=== PATIENT | male | born 1965 | race Hispanic/Latino ===

== ENCOUNTER 2017-11-12 01:51 | Emergency (ER) | payer MEDICAID ==
[2017-11-12] MEDS ORDERED: ACETAMINOPHEN-CODEINE 300/30MG TAB ONE (02:26)
[2017-11-12] MEDS ORDERED: DiphenhydrAMINE HCL 50 MG/ML VIAL ONE (02:55)
== END 2017-11-12 03:17 | disposition home or self-care (01) ==
LOC: EDH 01:51
DX: G47.00 Insomnia, unspecified (principal); F11.23 Opioid dependence with withdrawal; E11.9 Type 2 diabetes mellitus without complications; I10 Essential (primary) hypertension; R00.1 Bradycardia, unspecified; Z95.0 Presence of cardiac pacemaker; Z88.8 Allergy status to other drugs, medicaments and biological substances; Z98.890 Other specified postprocedural states
CPT/HCPCS: 96372; 99283; J1200

== ENCOUNTER 2019-01-17 23:44 | Emergency (ER) | payer MEDICAID ==
[2019-01-18] MEDS ORDERED: PREDNISONE 20 MG TABLET ONE (00:43)
[2019-01-18] MEDS ORDERED: LIDOCAINE 5% TOPICAL PATCH TP ONE (00:43)
[2019-01-18] MEDS ORDERED: ACYCLOVIR SODIUM 1000 MG VIAL IV ONE (00:47)
[2019-01-18] MEDS ORDERED: VALACYCLOVIR HCL 500 MG TABLET ONE (01:28)
== END 2019-01-18 01:37 | disposition home or self-care (01) ==
LOC: EDH 23:44
DX: B02.9 Zoster without complications (principal); I10 Essential (primary) hypertension; E11.9 Type 2 diabetes mellitus without complications; I25.2 Old myocardial infarction; Z95.1 Presence of aortocoronary bypass graft; Z88.5 Allergy status to narcotic agent; Z91.041 Radiographic dye allergy status
CPT/HCPCS: 93005; 99284; J0133

== ENCOUNTER 2019-04-19 00:48 | Emergency (ER) | payer MEDICAID ==
[2019-04-19 01:33] LABS: APPEARANCE,URINE Clear (CLEAR); BILIRUBIN,URINE Negative (NEGATIVE); COLOR,URINE Yellow (YELLOW); GLUCOSE, URINE (UA) TRACE mg/dL (NEGATIVE); KETONES,URINE Negative (NEGATIVE); LEUKOCYTE ESTERASE ,URINE Negative (NEGATIVE); NITRATE,URINE Negative (NEGATIVE); OCCULT BLOOD,URINE Negative (NEGATIVE); PROTEIN,URINE Trace mg/dL (NEGATIVE)
[2019-04-19 01:38] LABS: CREATININE 1.1 mg/dL (0.5-1.5); POTASSIUM 3.1 mmol/L (3.5-5.1)
[2019-04-19 01:40] LABS: AMPHET/METH SCREEN,URINE NEGATIVE (NEGATIVE); BARBITURATE SCREEN, URINE NEGATIVE (NEGATIVE); BENZODIAZEPINES SCREEN,URINE NEGATIVE (NEGATIVE); CANNABINOID SCREEN,URINE NEGATIVE (NEGATIVE); COCAINE SCREEN,URINE NEGATIVE (NEGATIVE); OPIATE SCREEN,URINE POSITIVE (NEGATIVE); PHENCYCLIDINE SCREEN,URINE NEGATIVE (NEGATIVE)
[2019-04-19 01:44] LABS: BILIRUBIN,TOTAL 0.4 mg/dL (0.2-1.0); TOTAL PROTEIN, SERUM 7.7 g/dL (6.0-8.3)
[2019-04-19 01:46] LABS: INR 1.02 (0.85-1.15); PARTIAL THROMBOPLASTIN TIME 25.8 SEC (26.3-35.5); PROTHROMBIN TIME 10.7 SEC (9.6-11.6)
[2019-04-19 01:52] LABS: BACTERIA,URINE None Seen /HPF (None Seen); MUCUS,URINE Rare LPF (None Seen); RBC,URINE None Seen /HPF (0-1); SQUAMOUS EPITHELIAL CELL,UR Rare /HPF (0-2); WBC,URINE None Seen /HPF (0-1)
[2019-04-19 01:57] LABS: BASOPHILS % (AUTO) 0.4 % (0.0-5.0); EOSINOPHILS % (AUTO) 1.3 % (0.0-8.0); HEMATOCRIT 37.4 % (42-54); LYMPHOCYTES % (AUTO) 51.5 % (21.0-51.0); MEAN CORPUSCULAR HEMOGLOBIN 33.8 pg (27.0-33.0); MEAN CORPUSCULAR HGB CONC 34.6 g/dL (32.0-36.0); MEAN CORPUSCULAR VOLUME 97.7 fL (79-99); MONOCYTES % (AUTO) 9.9 % (3.0-13.0); NEUTROPHILS % (AUTO) 36.9 % (40.0-77.0); NUCLEATED RED BLOOD CELLS 0.1 % (0.0-0.19); PLATELET COUNT (AUTO) 172 K/uL (130-400); RED BLOOD CELL COUNT(AUTO) 3.83 MIL/uL (4.50-6.20); RED CELL DISTRIBUTION WIDTH 13.5 % (11.0-15.5); WHITE BLOOD COUNT (AUTO) 5.8 K/uL (4.8-10.8)
== END 2019-04-19 03:13 | disposition home or self-care (01) ==
LOC: EDH 00:48
DX: R53.1 Weakness (principal); R51 Headache; R20.0 Anesthesia of skin; M79.602 Pain in left arm; I10 Essential (primary) hypertension; E11.9 Type 2 diabetes mellitus without complications; I25.2 Old myocardial infarction; Z95.0 Presence of cardiac pacemaker; Z90.49 Acquired absence of other specified parts of digestive tract; Z91.041 Radiographic dye allergy status; Z88.8 Allergy status to other drugs, medicaments and biological substances
CPT/HCPCS: 36415; 70450; 80053; 80305; 81001; 82550; 84484; 85025; 85610; 85730; 93005

== ENCOUNTER 2020-02-13 04:32 | Emergency (ER) | payer MEDICAID ==
[2020-02-13] MEDS ORDERED: SODIUM CHLORIDE 0.9% 1000ML 1,000 ML IV ONE (04:55)
[2020-02-13] MEDS ORDERED: MORPHINE SULFATE 4 MG/1ML SYG ONE (05:27)
[2020-02-13] MEDS ORDERED: ONDANSETRON HCL 4 MG/2 ML VIAL ONE (05:27)
[2020-02-13 05:29] LABS: BASOPHILS % (AUTO) 0.1 % (0.0-5.0); EOSINOPHILS % (AUTO) 0.1 % (0.0-8.0); HEMATOCRIT 41.1 % (42-54); LYMPHOCYTES % (AUTO) 36.1 % (21.0-51.0); MEAN CORPUSCULAR HEMOGLOBIN 31.3 pg (27.0-33.0); MEAN CORPUSCULAR HGB CONC 35.5 g/dL (32.0-36.0); MEAN CORPUSCULAR VOLUME 88.2 fL (79-99); MONOCYTES % (AUTO) 5.4 % (3.0-13.0); NEUTROPHILS % (AUTO) 57.9 % (40.0-77.0); PLATELET COUNT (AUTO) 209 K/uL (130-400); RED BLOOD CELL COUNT(AUTO) 4.66 MIL/uL (4.50-6.20); RED CELL DISTRIBUTION WIDTH 12.5 % (11.0-15.5); WHITE BLOOD COUNT (AUTO) 6.9 K/uL (4.8-10.8)
[2020-02-13 05:49] LABS: PARTIAL THROMBOPLASTIN TIME 24.8 SEC (26.3-35.5); PROTHROMBIN TIME 10.8 SEC (9.6-11.6)
[2020-02-13 05:50] LABS: CARBON DIOXIDE 26 mmol/L (21-32); CHLORIDE 104 mmol/L (101-111); GLOMERULAR FILTR. RATE CALC 83 mL/min (>60); GLUCOSE,RANDOM 235 mg/dL (70-105); POTASSIUM 3.9 mmol/L (3.5-5.1); SODIUM SERUM 143 mmol/L (136-145); UREA NITROGEN, BLOOD 6 mg/dL (7-18)
[2020-02-13 05:53] LABS: ALANINE AMINOTRANSFERASE 28 U/L (12-78); ALBUMIN 4.3 g/dL (3.5-5.0); ALCOHOL, BLOOD 137 mg/dL (0-10); ASPARTATE AMINOTRANSFERASE 28 U/L (10-37); BILIRUBIN,TOTAL 0.3 mg/dL (0.2-1.0); CREATINE KINASE, TOTAL 205 U/L (21-232); LIPASE 295 U/L (114-286); TOTAL PROTEIN, SERUM 8.4 g/dL (6.0-8.3)
[2020-02-13 05:54] LABS: ACETAMINOPHEN < 1 mcg/mL (10-29); SALICYLATE < 2.8 mg/dL (2.8-20.0)
[2020-02-13] MEDS ORDERED: LIDOCAINE HCL 1% 20 ML VIAL ONE (06:10)
[2020-02-13 06:19] LABS: AMPHET/METH SCREEN,URINE NEGATIVE (NEGATIVE); BARBITURATE SCREEN, URINE NEGATIVE (NEGATIVE); BENZODIAZEPINES SCREEN,URINE POSITIVE (NEGATIVE); CANNABINOID SCREEN,URINE NEGATIVE (NEGATIVE); COCAINE SCREEN,URINE POSITIVE (NEGATIVE); OPIATE SCREEN,URINE NEGATIVE (NEGATIVE); PHENCYCLIDINE SCREEN,URINE NEGATIVE (NEGATIVE)
[2020-02-13] MEDS ORDERED: CEPHALEXIN 500 MG CAPSULE ONE (07:18)
[2020-02-13] MEDS ORDERED: THIAMINE HCL 100 MG/ML 2ML VIAL ONE (07:19)
[2020-02-13] MEDS ORDERED: IBUPROFEN 800 MG TAB ONE (07:19)
[2020-02-13] MEDS ORDERED: ACETAMINOPHEN 325 MG TAB ONE (10:21)
== END 2020-02-13 11:37 | disposition short-term general hospital (02) ==
LOC: EDH 04:32
DX: S31.119A Laceration without foreign body of abdominal wall, unspecified quadrant without penetration into peritoneal cavity, initial encounter (principal); R45.851 Suicidal ideations; E11.9 Type 2 diabetes mellitus without complications; I10 Essential (primary) hypertension; I25.2 Old myocardial infarction; Z72.0 Tobacco use; Z90.49 Acquired absence of other specified parts of digestive tract; Z88.6 Allergy status to analgesic agent; Z91.041 Radiographic dye allergy status; X58.XXXA Exposure to other specified factors, initial encounter; Y93.89 Activity, other specified; Y92.89 Other specified places as the place of occurrence of the external cause; Y99.8 Other external cause status
CPT/HCPCS: 12031; 36415; 71250; 74176; 80053; 80305; 82550; 83690; 84484; 85025; 85610; 85730; 86850; 86900; 86901; 93005; 96365; 96366; 96375; 99285; G0480 ×3; G0481; J2270; J2405; J3411; J7030

== ENCOUNTER 2021-05-21 00:39 | Emergency (ER) | payer MEDICAID ==
[~2021-05-21] VITALS: Ht 160 cm; Wt 73.9 kg
[2021-05-21 01:28] VITALS: BP 154/89
[2021-05-21] MEDS ORDERED: ONDANSETRON 4MG INJ IVP ONE (01:30)
[2021-05-21] MEDS ORDERED: MORPHINE 4 MG SYG IVP ONE (01:30)
[2021-05-21] MEDS ORDERED: 0.9%NACL 1000ML 1,000 ML IV ONE ×2 (01:30→01:38)
[2021-05-21] MEDS ORDERED: MORPHINE 4 MG SYG ONE (01:31)
[2021-05-21] MEDS ORDERED: ONDANSETRON 4MG INJ ONE (01:31)
[2021-05-21 01:34] LABS: BASOPHILS % (AUTO) 0.3 % (0.0-5.0); EOSINOPHILS % (AUTO) 0.6 % (0.0-8.0); LYMPHOCYTES % (AUTO) 30.2 % (21.0-51.0); MEAN CORPUSCULAR HEMOGLOBIN 32.2 pg (27.0-33.0); MEAN CORPUSCULAR HGB CONC 35.4 g/dL (32.0-36.0); MEAN CORPUSCULAR VOLUME 90.9 fL (79-99); MONOCYTES % (AUTO) 8.2 % (3.0-13.0); NEUTROPHILS % (AUTO) 60.5 % (40.0-77.0); PLATELET COUNT (AUTO) 184 K/uL (130-400); RED BLOOD CELL COUNT(AUTO) 4.07 MIL/uL (4.50-6.20); RED CELL DISTRIBUTION WIDTH 12.3 % (11.0-15.5); WHITE BLOOD COUNT (AUTO) 6.6 K/uL (4.8-10.8)
[2021-05-21 01:42] LABS: POTASSIUM 3.6 mmol/L (3.5-5.1)
[2021-05-21 01:50] LABS: APPEARANCE,URINE Clear (CLEAR); BILIRUBIN,URINE Negative (NEGATIVE); COLOR,URINE Yellow (YELLOW); GLUCOSE, URINE (UA) >=1000 mg/dL (NEGATIVE); KETONES,URINE Negative (NEGATIVE); LEUKOCYTE ESTERASE ,URINE Negative (NEGATIVE); NITRATE,URINE Negative (NEGATIVE); OCCULT BLOOD,URINE Negative (NEGATIVE); PH,URINE 6.5 (5.0-8.0); PROTEIN,URINE Negative (NEGATIVE)
[2021-05-21 01:52] LABS: ALBUMIN 3.7 g/dL (3.5-5.0); BILIRUBIN,TOTAL 0.4 mg/dL (0.2-1.0); TOTAL PROTEIN, SERUM 7.8 g/dL (6.0-8.3)
[2021-05-21 02:10] LABS: RBC,URINE None Seen /HPF (0-1); WBC,URINE 0-1 /HPF (0-1)
[2021-05-21 02:11] LABS: BACTERIA,URINE None Seen /HPF (None Seen); SQUAMOUS EPITHELIAL CELL,UR 0-2 /HPF (0-2)
[2021-05-21] MEDS ORDERED: KETOROLAC 30MG VIAL (30MG/ML) ONE (03:58)
[2021-05-21] MEDS ORDERED: KETOROLAC 30MG VIAL (30MG/ML) IV ONE (04:00)
[2021-05-21] MEDS ORDERED: ACETAMINOPHEN WITH CODEINE 1 TAB TAB ONE (06:49)
[2021-05-21] MEDS ORDERED: ONDA4TAB10 PO (06:53)
[2021-05-21] MEDS ORDERED: ACETAMINOPHEN WITH CODEINE 1 TAB TAB PO ONE (07:00)
== END 2021-05-21 07:00 | disposition home or self-care (01) ==
LOC: EDH 00:39
DX: R10.32 Left lower quadrant pain (principal); G89.29 Other chronic pain; R11.2 Nausea with vomiting, unspecified; R50.9 Fever, unspecified; Z79.1 Long term (current) use of non-steroidal anti-inflammatories (NSAID); Z79.899 Other long term (current) drug therapy; Z88.5 Allergy status to narcotic agent; Z88.8 Allergy status to other drugs, medicaments and biological substances; Z90.49 Acquired absence of other specified parts of digestive tract; Z95.0 Presence of cardiac pacemaker; Z91.041 Radiographic dye allergy status
CPT/HCPCS: 36415; 74176; 80053; 81001; 82550; 83690; 84484; 85025; 93005; 96361; 96374; 96375; 99285; J1885; J2270; J2405; J7030

== ENCOUNTER 2021-08-22 18:49 | Emergency (ER) | payer MEDICAID ==
[~2021-08-22 18:49] MED LIST: ONDA4TAB10 PO
[2021-08-22 20:18] VITALS: BP 142/76
[2021-08-22] MEDS ORDERED: ONDANSETRON 4MG TABLET PO ONE (21:00)
[2021-08-22] MEDS ORDERED: ACETAMINOPHEN 500 MG TABLET PO ONE (21:00)
[2021-08-22 21:09] LABS: BASOPHILS % (AUTO) 0.4 % (0.0-5.0); HEMATOCRIT 30.6 % (42-54); LYMPHOCYTES % (AUTO) 37.3 % (21.0-51.0); MEAN CORPUSCULAR HEMOGLOBIN 31.8 pg (27.0-33.0); MEAN CORPUSCULAR HGB CONC 37.3 g/dL (32.0-36.0); MEAN CORPUSCULAR VOLUME 85.5 fL (79-99); MONOCYTES % (AUTO) 8.3 % (3.0-13.0); NEUTROPHILS % (AUTO) 50.5 % (40.0-77.0); PLATELET COUNT (AUTO) 252 K/uL (130-400); RED BLOOD CELL COUNT(AUTO) 3.58 MIL/uL (4.50-6.20); RED CELL DISTRIBUTION WIDTH 11.4 % (11.0-15.5); WHITE BLOOD COUNT (AUTO) 5.7 K/uL (4.8-10.8)
[2021-08-22 21:24] LABS: BILIRUBIN,TOTAL 0.2 mg/dL (0.2-1.0); CREATININE 0.9 mg/dL (0.5-1.5); TOTAL PROTEIN, SERUM 7.2 g/dL (6.0-8.3)
[2021-08-22] MEDS ORDERED: ONDANSETRON 4MG TABLET ONE (22:05)
[2021-08-22] MEDS ORDERED: ACETAMINOPHEN 500 MG TABLET ONE (22:05)
[2021-08-22] MEDS ORDERED: ONDA4TAB10 PO (22:23)
[2021-08-22] MEDS ORDERED: POTASSIUM BICARB/CIT AC 25 MEQ TABLET.EFF PO ONE (22:35)
[2021-08-22] MEDS ORDERED: POTASSIUM BICARB/CIT AC 25 MEQ TABLET.EFF ONE (22:36)
[2021-08-22 22:50] LABS: BILIRUBIN,URINE Negative (NEGATIVE); COLOR,URINE Yellow (YELLOW); GLUCOSE, URINE (UA) Negative (NEGATIVE); KETONES,URINE Negative (NEGATIVE); LEUKOCYTE ESTERASE ,URINE Negative (NEGATIVE); NITRATE,URINE Negative (NEGATIVE); OCCULT BLOOD,URINE Negative (NEGATIVE); PH,URINE 6.5 (5.0-8.0); PROTEIN,URINE Negative (NEGATIVE); UROBILINOGEN,URINE 0.2 mg/dL (0.2-1.0)
[2021-08-22 22:53] LABS: APPEARANCE,URINE CLEAR (CLEAR)
== END 2021-08-22 22:45 | disposition home or self-care (01) ==
LOC: EDH 18:49
DX: R51.9 Headache, unspecified (principal); R11.2 Nausea with vomiting, unspecified; R07.89 Other chest pain; E11.9 Type 2 diabetes mellitus without complications; I10 Essential (primary) hypertension; Z88.5 Allergy status to narcotic agent; Z88.8 Allergy status to other drugs, medicaments and biological substances; Z90.49 Acquired absence of other specified parts of digestive tract; Z95.0 Presence of cardiac pacemaker; Z79.899 Other long term (current) drug therapy
CPT/HCPCS: 36415; 70450; 71045; 80053; 81003; 85025; 99285; Q0162

== ENCOUNTER 2021-11-08 21:44 | Emergency (ER) | payer MEDICAID ==
[~2021-11-08] VITALS: Ht 160 cm; Wt 74.8 kg
[2021-11-08 21:49] VITALS: BP 170/79
[2021-11-08] MEDS ORDERED: KETOROLAC 15MG/ML VIAL (15MG/ML) IV ONE (22:00)
[2021-11-08] MEDS ORDERED: 0.9%NACL 1000ML 1,000 ML IV ONE (22:00)
[2021-11-08 22:07] LABS: APPEARANCE,URINE CLEAR (CLEAR); BILIRUBIN,URINE NEGATIVE (NEGATIVE); COLOR,URINE YELLOW (YELLOW); GLUCOSE, URINE (UA) 250 mg/dL (NEGATIVE); KETONES,URINE 15 mg/dL (NEGATIVE); LEUKOCYTE ESTERASE ,URINE NEGATIVE (NEGATIVE); NITRATE,URINE NEGATIVE (NEGATIVE); OCCULT BLOOD,URINE NEGATIVE (NEGATIVE); PROTEIN,URINE TRACE mg/dL (NEGATIVE)
[2021-11-08 22:12] LABS: BACTERIA,URINE Few /HPF (None Seen); MUCUS,URINE Few LPF (None Seen); RBC,URINE 0-1 /HPF (0-1); SQUAMOUS EPITHELIAL CELL,UR Few /HPF (0-2); WBC,URINE 0-1 /HPF (0-1)
[2021-11-08 22:30] LABS: BASOPHILS % (AUTO) 0.3 % (0.0-5.0); EOSINOPHILS % (AUTO) 2.8 % (0.0-8.0); HEMATOCRIT 36.2 % (42-54); LYMPHOCYTES % (AUTO) 39.3 % (21.0-51.0); MEAN CORPUSCULAR HEMOGLOBIN 32.7 pg (27.0-33.0); MEAN CORPUSCULAR HGB CONC 35.4 g/dL (32.0-36.0); MEAN CORPUSCULAR VOLUME 92.6 fL (79-99); MONOCYTES % (AUTO) 10.1 % (3.0-13.0); NEUTROPHILS % (AUTO) 47.3 % (40.0-77.0); PLATELET COUNT (AUTO) 191 K/uL (130-400); RED BLOOD CELL COUNT(AUTO) 3.91 MIL/uL (4.50-6.20); RED CELL DISTRIBUTION WIDTH 14.1 % (11.0-15.5); WHITE BLOOD COUNT (AUTO) 5.7 K/uL (4.8-10.8)
[2021-11-08 22:50] LABS: CREATININE 1.3 mg/dL (0.5-1.5); POTASSIUM 3.2 mmol/L (3.5-5.1)
[2021-11-08 22:55] LABS: ALBUMIN 4.3 g/dL (3.5-5.0); BILIRUBIN,TOTAL 0.2 mg/dL (0.2-1.0); TOTAL PROTEIN, SERUM 8.3 g/dL (6.0-8.3)
[2021-11-08] MEDS ORDERED: POTASSIUM BICARB/CIT AC 25 MEQ TABLET.EFF PO ONE (23:00)
[2021-11-08] MEDS ORDERED: POLY17PO4 PO (23:09)
[2021-11-08] MEDS ORDERED: CYCL10TA16 PO (23:09)
== END 2021-11-08 23:54 | disposition home or self-care (01) ==
LOC: EDH 21:44
DX: N20.0 Calculus of kidney (principal); K59.00 Constipation, unspecified; E11.9 Type 2 diabetes mellitus without complications; E78.00 Pure hypercholesterolemia, unspecified; I10 Essential (primary) hypertension; Z91.041 Radiographic dye allergy status; Z88.5 Allergy status to narcotic agent; Z88.8 Allergy status to other drugs, medicaments and biological substances; Z95.0 Presence of cardiac pacemaker
CPT/HCPCS: 36415; 74176; 80053; 81001; 85025; 96361; 96374; 99284; J1885; J7030

== ENCOUNTER 2022-05-24 22:53 | Emergency (ER) | payer MEDICAID ==
[~2022-05-24] VITALS: Ht 160 cm; Wt 71.2 kg
[~2022-05-24 22:53] MED LIST changes: +CYCL10TA16 PO; +INSULIN LISPRO 100 UNIT/ML 3ML SQ ONE; +POLY17PO4 PO
[2022-05-24 23:23] LABS: BASOPHILS % (AUTO) 0.3 % (0.0-5.0); EOSINOPHILS % (AUTO) 2.4 % (0.0-8.0); HEMATOCRIT 32.8 % (42-54); LYMPHOCYTES % (AUTO) 43.3 % (21.0-51.0); MEAN CORPUSCULAR HEMOGLOBIN 32.1 pg (27.0-33.0); MEAN CORPUSCULAR HGB CONC 35.7 g/dL (32.0-36.0); MEAN CORPUSCULAR VOLUME 89.9 fL (79-99); MONOCYTES % (AUTO) 9.2 % (3.0-13.0); NEUTROPHILS % (AUTO) 44.5 % (40.0-77.0); PLATELET COUNT (AUTO) 213 K/uL (130-400); RED BLOOD CELL COUNT(AUTO) 3.65 MIL/uL (4.50-6.20); RED CELL DISTRIBUTION WIDTH 12.2 % (11.0-15.5); WHITE BLOOD COUNT (AUTO) 5.8 K/uL (4.8-10.8)
[2022-05-24] MEDS ORDERED: HYDROCODONE/ACETAMINOPHEN 10/325 MG TAB PO ONE (23:30)
[2022-05-24] MEDS ORDERED: CLINDAMYCIN IVPB 600MG/50ML 50 ML IV SCH (23:30)
[2022-05-24 23:47] LABS: ALBUMIN 3.4 g/dL (3.5-5.0); CREATININE 1.1 mg/dL (0.5-1.5); TOTAL PROTEIN, SERUM 7.3 g/dL (6.0-8.3)
[2022-05-24 23:48] LABS: POTASSIUM 2.9 mmol/L (3.5-5.1)
[2022-05-25] MEDS ORDERED: CLIN-141 PO (00:10)
[2022-05-25] MEDS ORDERED: INSULIN LISPRO 100 UNIT/ML 3ML SQ ONE (00:30)
[2022-05-25] MEDS ORDERED: KCL 20 MEQ ERTAB PO ONE (00:30)
[2022-05-25 01:04] VITALS: BP 148/75
== END 2022-05-25 01:49 | disposition home or self-care (01) ==
LOC: EDH 22:53
DX: L02.811 Cutaneous abscess of head [any part, except face] (principal); E11.9 Type 2 diabetes mellitus without complications; I10 Essential (primary) hypertension; Z88.8 Allergy status to other drugs, medicaments and biological substances; Z88.5 Allergy status to narcotic agent; Z98.890 Other specified postprocedural states
CPT/HCPCS: 99284; 80053; 85025; 82948; 86140; 36415; 96365; 96372; J1815; J3490